=== PATIENT | female | born 1990 | race Caucasian/White ===

== ENCOUNTER 2017-05-05 13:01 | Emergency (ER) | payer OTHER ==
[2017-05-05 16:45] LABS: BASO % 0.2 % (0.0-1.0); EOS # 0.1 10^3/uL (0.0-0.50); EOS % 0.8 % (0.0-3.0); HEMATOCRIT 36.5 % (36.0-47.0); HEMOGLOBIN 12.2 g/dl (12.0-16.0); IMMATURE GRANULOCYTE % 0.3 % (0-0); LYMPH # 2.5 10^3/uL (1.5-6.5); LYMPH % 27.2 % (24.0-44.0); MEAN CORPUSCULAR HEMOGLOBIN 28.7 pg (27.0-33.0); MEAN CORPUSCULAR HGB CONC 33.4 g/dl (32.0-36.5); MEAN CORPUSCULAR VOLUME 85.9 fl (80.0-96.0); MONO # 0.6 10^3/uL (0.0-0.8); MONO % 6.1 % (0.0-5.0); NEUTROPHILS # 5.9 10^3/uL (1.8-7.7); NEUTROPHILS % 65.4 % (36.0-66.0); PLATELET COUNT, AUTOMATED 288 10^3/uL (150-450); RED BLOOD COUNT 4.25 10^6/uL (4.00-5.40); RED CELL DISTRIBUTION WIDTH 12.4 % (11.5-14.5); WHITE BLOOD COUNT 9.1 10^3/uL (4.0-10.0)
[2017-05-05 17:20] LABS: ANION GAP 9 MEQ/L (8-16); BLOOD UREA NITROGEN 9 MG/DL (7-18); CALCIUM LEVEL 8.4 MG/DL (8.5-10.1); CARBON DIOXIDE LEVEL 25 MEQ/L (21-32); CHLORIDE LEVEL 106 MEQ/L (98-107); CREATININE FOR GFR 0.62 MG/DL (0.55-1.02); GLOMERULAR FILTRATION RATE > 60.0 (>60); GLUCOSE, FASTING 74 MG/DL (70-105); HCG, SERUM QUANTITATIVE 174493 MIU/ML; SODIUM LEVEL 140 MEQ/L (136-145)
[2017-05-05] MEDS: NITROFURANTOIN (MACROBID) 100 MG CAP PO (17:53)
== END 2017-05-05 17:53 | disposition home or self-care (01) ==
LOC: M ED 13:01
DX: O23.41 Unspecified infection of urinary tract in pregnancy, first trimester (principal); O99.331 Smoking (tobacco) complicating pregnancy, first trimester; O09.91 Supervision of high risk pregnancy, unspecified, first trimester; Z3A.08 8 weeks gestation of pregnancy; Z87.42 Personal history of other diseases of the female genital tract
CPT/HCPCS: 76801

== ENCOUNTER 2017-10-14 17:02 | Outpatient (CLI) | payer OTHER | END 2017-10-14 18:59 | disposition home or self-care (01) | LOC: M LDO 17:02 | DX: O26.893 Other specified pregnancy related conditions, third trimester (principal); Z3A.31 31 weeks gestation of pregnancy; N89.8 Other specified noninflammatory disorders of vagina | CPT/HCPCS: 59025 ==

== ENCOUNTER 2017-11-23 23:52 | Outpatient (CLI) | payer OTHER | END 2017-11-24 02:00 | disposition home or self-care (01) | LOC: M LDO 23:52 | DX: O47.1 False labor at or after 37 completed weeks of gestation (principal); O24.429 Gestational diabetes mellitus in childbirth, unspecified control; Z3A.37 37 weeks gestation of pregnancy | CPT/HCPCS: 59025 ==

== ENCOUNTER 2017-12-06 15:54 | Inpatient (IN) | payer OTHER ==
[2017-12-06 16:41] LABS: HEMATOCRIT 30.9 % (36.0-47.0); MEAN CORPUSCULAR HEMOGLOBIN 26.2 pg (27.0-33.0); MEAN CORPUSCULAR HGB CONC 32.4 g/dl (32.0-36.5); MEAN CORPUSCULAR VOLUME 80.9 fl (80.0-96.0); PLATELET COUNT, AUTOMATED 263 10^3/uL (150-450); RED BLOOD COUNT 3.82 10^6/uL (4.00-5.40); RED CELL DISTRIBUTION WIDTH 13.6 % (11.5-14.5)
[2017-12-06 17:26] LABS: BEDSIDE GLUCOSE 81 MG/DL (70-105)
[2017-12-06] MEDS: miSOPROStol 50 MCG 1/2 TAB (S0191) PO (17:47)
[2017-12-06] MEDS: miSOPROStol 50 MCG 1/2 TAB (S0191) PV (22:22)
[2017-12-06] MEDS: metFORMIN (GLUCOPHAGE) 1000 MG TABLET PO (22:31)
[2017-12-07] MEDS: FAMOTIDINE 20 MG TAB PO (00:30)
[2017-12-07] MEDS: miSOPROStol 50 MCG 1/2 TAB (S0191) PO (02:55)
[2017-12-07 07:09] LABS: BEDSIDE GLUCOSE 78 MG/DL (70-105)
[2017-12-07] MEDS: metFORMIN (GLUCOPHAGE) 500 MG TAB PO (08:23)
[2017-12-07] MEDS ORDERED: FENTANYL 2MCG/ML ROPIVACAINE 0.2% IN 0.9% NACL 200ML IVBAG As Ordered (09:20)
[2017-12-07] MEDS: OXYTOCIN DRIP 30 UNITS in APPROPRIATE DILUENT 1 EA IV ×3 (10:23→17:05)
[2017-12-07] MEDS: LR 1,000 ML IV (10:23)
[2017-12-07] MEDS ORDERED: EPIDURAL/PCA KEYS XX (10:45)
[2017-12-07] MEDS ORDERED: EPIDURAL COMMENT XX (10:45)
[2017-12-07] MEDS ORDERED: NALOXONE INJ 0.4 MG/1 ML VIAL (J2310) IV (10:45)
[2017-12-07] MEDS ORDERED: ePHEDrine SULFATE 25 MG/5 ML(5MG/ML) SYRINGE IV (10:45)
[2017-12-07] MEDS ORDERED: LACTATED RINGER'S 1000 ML IV (10:45)
[2017-12-07] MEDS: FENTANYL/ROPIVACAINE/NACL BAG 200 ML EPIDURAL (10:45)
[2017-12-07] MEDS ORDERED: diphenhydrAMINE INJ 50MG/ML VIAL (J1200) IV (10:45)
[2017-12-07] MEDS ORDERED: REFRIGERATOR IV KEYS XX (10:45)
[2017-12-07] MEDS ORDERED: ONDANSETRON 4MG/2ML VIAL (J2405) IV (10:45)
[2017-12-07] MEDS ORDERED: medroxyPROGESTERone ACET IM SUSP 150 MG/ML VIAL (J1050) IM (17:00)
[2017-12-07] MEDS ORDERED: RHOGAM 300 MCG (1500 IU) INJ (J2790) IM (17:00)
[2017-12-07] MEDS ORDERED: METOCLOPRAMIDE INJ 10MG/2ML VIAL (J2765) IV (17:00)
[2017-12-07] MEDS ORDERED: MEASLES,MUMPS,RUBELLA VACCINE INJ (MMR-II) (90707) SC (17:00)
[2017-12-07] MEDS: IBUPROFEN 800 MG TAB PO (18:12)
[2017-12-07] MEDS ORDERED: metFORMIN (GLUCOPHAGE) 1000 MG TABLET PO (21:00)
[2017-12-07] MEDS: DOCUSATE SODIUM 100 MG CAP PO (21:00)
[2017-12-07] MEDS: ACETAMINOPHEN TAB 650MG DOSE (2X325MG) PO (21:16)
[2017-12-08] MEDS: PRENATAL VITAMINS CHEWABLE TABLET PO (09:29)
[2017-12-08] MEDS: DOCUSATE SODIUM 100 MG CAP PO ×2 (09:29→20:37)
[2017-12-08] MEDS: IBUPROFEN 800 MG TAB PO ×2 (09:31→17:57)
[2017-12-08] MEDS: FAMOTIDINE 20 MG TAB PO (17:57)
[2017-12-08] MEDS: DIBUCAINE 1% OINTMENT 30GM TOP (20:37)
[2017-12-08] MEDS: ACETAMINOPHEN TAB 650MG DOSE (2X325MG) PO (20:37)
[2017-12-09] MEDS: PRENATAL VITAMINS CHEWABLE TABLET PO (09:38)
[2017-12-09] MEDS: IBUPROFEN 800 MG TAB PO (09:38)
[2017-12-09] MEDS: DOCUSATE SODIUM 100 MG CAP PO (09:38)
== END 2017-12-09 11:00 | disposition home or self-care (01) | DRG 775 ==
LOC: M LDI 15:54 → M OBS 12-07 18:57
PROVIDERS: Obstetrics & Gynecology
PROC: 3E0P7GC Introduction of Other Therapeutic Substance into Female Reproductive, Via Natural or Artificial Opening (ICD-10-PCS; 2017-12-06)
PROC: 10E0XZZ Delivery of Products of Conception, External Approach (ICD-10-PCS; principal; 2017-12-07)
PROC: 0KQM0ZZ Repair Perineum Muscle, Open Approach (ICD-10-PCS; 2017-12-07)
DX: O24.425 Gestational diabetes mellitus in childbirth, controlled by oral hypoglycemic drugs (principal); Z3A.39 39 weeks gestation of pregnancy; O99.334 Smoking (tobacco) complicating childbirth; F17.210 Nicotine dependence, cigarettes, uncomplicated; O70.1 Second degree perineal laceration during delivery; Z37.0 Single live birth

== ENCOUNTER 2017-12-17 18:33 | Emergency (ER) | payer OTHER ==
[2017-12-17] MEDS: NORCO, ANEXSIA 5/325MG TABLET (HYDROcodone/ACETAMINOPHEN) PO (17:47)
[2017-12-17] MEDS: NS 1,000 ML IV (17:47)
[2017-12-17 17:51] LABS: BASO % 0.2 % (0.0-1.0); EOS # 0.2 10^3/uL (0.0-0.50); EOS % 2.1 % (0.0-3.0); HEMATOCRIT 37.5 % (36.0-47.0); HEMOGLOBIN 12.1 g/dl (12.0-15.5); IMMATURE GRANULOCYTE % 0.4 % (0-3.0); LYMPH # 3.5 10^3/uL (1.5-6.5); LYMPH % 35.2 % (24.0-44.0); MEAN CORPUSCULAR HEMOGLOBIN 26.2 pg (27.0-33.0); MEAN CORPUSCULAR HGB CONC 32.3 g/dl (32.0-36.5); MEAN CORPUSCULAR VOLUME 81.2 fl (80.0-96.0); MONO # 0.8 10^3/uL (0.0-0.8); MONO % 7.8 % (0.0-5.0); NEUTROPHILS # 5.3 10^3/uL (1.8-7.7); NEUTROPHILS % 54.3 % (36.0-66.0); PLATELET COUNT, AUTOMATED 424 10^3/uL (150-450); RED BLOOD COUNT 4.62 10^6/uL (4.00-5.40); RED CELL DISTRIBUTION WIDTH 14.2 % (11.5-14.5); WHITE BLOOD COUNT 9.8 10^3/uL (4.0-10.0)
[2017-12-17 17:59] LABS: ANION GAP 8 MEQ/L (8-16); BLOOD UREA NITROGEN 15 MG/DL (7-18); CALCIUM LEVEL 8.9 MG/DL (8.5-10.1); CARBON DIOXIDE LEVEL 26 MEQ/L (21-32); CHLORIDE LEVEL 106 MEQ/L (98-107); CREATININE FOR GFR 0.79 MG/DL (0.55-1.30); GLOMERULAR FILTRATION RATE > 60.0 (>60); GLUCOSE, FASTING 78 MG/DL (70-100); POTASSIUM SERUM 3.9 MEQ/L (3.5-5.1); SODIUM LEVEL 140 MEQ/L (136-145)
[2017-12-17 18:14] LABS: KETONE, URINE AUTO RFX NEGATIVE (NEGATIVE); NITRITE, URINE AUTO RFX NEGATIVE (NEGATIVE); RBC, URINE AUTO RFX 62 /HPF (0-3); SPECIFIC GRAVITY UR AUTO RFX 1.011 (1.002-1.035); SQUAM EPITHELIAL CELL UR AURFX 0 /HPF (0-6)
[2017-12-17 18:15] LABS: LEUKOCYTE ESTERASE UR AUTO RFX 3+ (NEGATIVE); WBC, URINE AUTO RFX TNTC /HPF (0-3)
[2017-12-17] MEDS: NITROFURANTOIN (MACROBID) 100 MG CAP PO (19:51)
[2017-12-17] MEDS: PHENAZOPYRIDINE 100 MG TAB PO (19:51)
== END 2017-12-17 19:59 | disposition home or self-care (01) ==
LOC: M ED 18:33
DX: O86.22 Infection of bladder following delivery (principal); Z86.32 Personal history of gestational diabetes; O99.335 Smoking (tobacco) complicating the puerperium
CPT/HCPCS: 80048